=== PATIENT | male | born 1950 | race Caucasian/White ===

== ENCOUNTER → 2016-12-25 | Outpatient (CLI) | payer MEDICARE ==
[~2016-12-25] MED LIST: BUPIVACAINE MPF 0.5% 30 ML VIAL. ONE; DEXAMETHASONE SOD PHOS 20 MG/5 ML VIAL. ONE; LIDOCAINE 1% PF 30 ML VIAL. ONE
== END | disposition home or self-care (01) ==
LOC: SURG 12:02
PROVIDERS: ATTEND Anesthesiology Pain Medicine
DX: M47.812 Spondylosis without myelopathy or radiculopathy, cervical region (principal); I10 Essential (primary) hypertension; M19.91 Primary osteoarthritis, unspecified site
CPT/HCPCS: 64490; 64491; J1100; J2001; J3490